=== PATIENT | male | born 1950 | race African-American/Black ===

== ENCOUNTER 2025-06-14 11:28 | Emergency (ER) | payer BC, MEDICAID ==
[~2025-06-14] VITALS: Ht 167.6 cm; Wt 64.0 kg
[2025-06-14 11:46] VITALS: O2SAT 96
[2025-06-14 11:49] VITALS: BP 137/91; PULSE 87; RESP 18; TEMP 36.9; O2SAT 100
[2025-06-14 12:49] LABS: CLARITY URINE CLOUDY (CLEAR); COLOR URINE DARK YELLOW (YELLOW); GLUCOSE URINE NEGATIVE (NEGATIVE); KETONES URINE TRACE (NEGATIVE); LEUKOCYTE ESTERASE URINE NEGATIVE (NEGATIVE); NITRITE URINE NEGATIVE (NEGATIVE); OCCULT BLOOD URINE NEGATIVE (NEGATIVE); PH URINE 5.0 (4.5-8.0); PROTEIN URINE 1+ (NEGATIVE); SPECIFIC GRAVITY URINE 1.031 (1.005-1.030); UROBILINOGEN URINE 1.0 E.U./dL (0.2-1.0)
[2025-06-14 13:10] LABS: FINE GRANULAR CASTS URINE 0-5 /lpf; SQUAMOUS EPITHELIAL CELL URINE 1+ /lpf (RARE/1+)
[2025-06-14 13:12] LABS: WBC URINE 0-2 /hpf (0-2)
[2025-06-14 13:13] LABS: RBC URINE 0-2 /hpf (0-2)
[2025-06-14 13:15] LABS: BACTERIA URINE 2+
[2025-06-14 13:19] LABS: BASOPHILS % 0.8 % (0.0-2.0); EOSINOPHILS % 1.3 % (0.0-5.0); HEMATOCRIT. 38.4 % (42.0-52.0); HEMOGLOBIN. 12.4 g/dL (14.0-18.0); LYMPHOCYTES % 16.3 % (20.0-50.0); MEAN PLATELET VOLUME 9.0 fl (7.4-10.4); MONOCYTES % 8.4 % (2.0-8.0); NEUTROPHILS % 73.2 % (40.0-76.0); PLATELET 231 x1000/uL (130-400); RED BLOOD CELL COUNT 4.44 mill/uL (4.7-6.1); RED CELL DISTRIBUTION WIDTH 15.6 % (11.6-14.6)
[2025-06-14 13:37] LABS: CREATININE 1.2 mg/dL (0.6-1.3)
[2025-06-14 13:38] LABS: UREA NITROGEN BLOOD 15 mg/dL (9-23)
[2025-06-14 13:39] LABS: ASPARTATE AMINOTRANSFERASE 20 IU/L (<34)
[2025-06-14 13:40] LABS: BILIRUBIN DIRECT 0.2 mg/dL (<=3.0); BILIRUBIN TOTAL 0.6 mg/dL (0.1-1.0); PROTEIN TOTAL 6.2 g/dL (6.0-8.3)
[2025-06-14] MEDS ORDERED: KETO15CR2 TP (16:58)
== END 2025-06-14 22:01 | disposition left against medical advice (07) ==
LOC: ER 11:28
DX: R10.20 Pelvic and perineal pain unspecified side (principal); Z98.890 Other specified postprocedural states
CPT/HCPCS: 36415; 76870; 80048; 80076; 81003; 85025; 93976; 99284

== ENCOUNTER 2025-06-25 15:18 | Emergency (ER) | payer MEDICAID ==
[~2025-06-25] VITALS: Ht 167.6 cm; Wt 67.0 kg
[~2025-06-25 15:18] MED LIST: KETO15CR2 TP
[2025-06-25 15:23] VITALS: O2SAT 99
[2025-06-25 15:26] VITALS: BP 144/99; PULSE 95; RESP 16; TEMP 36.8; O2SAT 100
== END 2025-06-25 20:40 | disposition left against medical advice (07) ==
LOC: ER 15:18
DX: R10.9 Unspecified abdominal pain (principal)
CPT/HCPCS: 99281